=== PATIENT | male | born 1995 | race Two or more races ===

== ENCOUNTER 2024-04-18 21:13 | Emergency (ER) | payer OTHER, SELFPAY ==
[2024-04-18 21:14] VITALS: BMI 28.1
[2024-04-18 21:21] VITALS: BP 163/112; PULSE 85; RESP 19; TEMP 36.7; O2SAT 100
--- NOTE | 2024-04-18 21:25 | XR_ITS ---
Examination: Hand, left 3 views Technique: Hand AP, oblique, lateral 3 views Date and time of exam: April 18, 2024 2130 hrs. Indications: Injury at work to the hand today, hand pain. Findings: Fracture along the long axis of the distal phalanx third digit without displacement Comminuted fracture proximal to mid clavicular with minimal offset No dislocation No opaque foreign body Impression: Acute fracture distal phalanx third digit, intra-articular Comminuted fracture proximal to mid navicular
--- NOTE | 2024-04-18 21:26 | PD.EDRME ---
Rapid Medical Screening Exam E Arrival date/time: 04/18/24 21:13 28-year-old male presents emergency department complaining of left third digit pain and swelling after a heavy metal plate fell on his finger earlier today. Patient reports was managing pain at home with ibuprofen but pain worsened so decided to get evaluation. Chief Complaint: Extremity Injury, Upper Time Seen by Provider: 04/18/24 21:23 Vital signs: Vital Signs Temperature 98.1 F 04/18/24 21:21 Pulse Rate 85 04/18/24 21:21 Respiratory Rate 19 04/18/24 21:21 Blood Pressure 163/112 H 04/18/24 21:21 Pulse Oximetry (%) 100 04/18/24 21:21 Oxygen Delivery Method Room Air 04/18/24 21:21 Vital signs reviewed by provider: Yes
[2024-04-18] MEDS: HYDROcodone/APAP 5/325 TABLET 1 TAB PO (22:02)
[2024-04-18] MEDS: KETOROLAC INJ 60 MG/2 ML VIAL 30 MG IM (22:03)
--- NOTE | 2024-04-18 22:08 | EDNOTE_ITS ---
Upper Extremity Injury RME/HPI General Chief Complaint: Extremity Injury, Upper Stated Complaint: Smashed finger with a metal plate 100lbs Lft 3rd Time Seen by Provider: 04/18/24 21:23 Source: patient Arrival date/time: 04/18/24 21:13 28-year-old male presents emergency department complaining of left third digit pain and swelling after a heavy metal plate fell on his finger earlier today. Patient reports was managing pain at home with ibuprofen but pain worsened so decided to get evaluation. Mode of arrival: ambulatory Limitations: no limitations RME / HPI RME / HPI narrative: 04/18/24 21:13 28-year-old male presents emergency department complaining of left third digit pain and swelling after a heavy metal plate fell on his finger earlier today. Patient reports was managing pain at home with ibuprofen but pain worsened so decided to get evaluation. Related Data Previous Rx's ?Medication ?Instructions ?Recorded ibuprofen 800 mg tablet 800 mg PO Q8H #30 tabs 03/28 cephalexin 500 mg capsule 500 mg PO BID 5 days #10 cap s 04/18/24 ibuprofen 800 mg tablet 800 mg PO TID PRN fever or p ain 04/18/24 #30 tabs Allergies Allergy/AdvReac Type Severity Reaction Status Date / Time No Known Allergies Allergy Verified 03/28/19 19:53 Review of Systems Review of Systems Systems Reviewed: All systems reviewed, normal except as documented Constitutional Constitutional: Reports system reviewed and no additional complaints, except as documented, Denies body ache(s), Denies chills and Denies fever(s) Eyes Eyes: Reports system reviewed and no additional complaints, except as documented and Denies change in vision ENT Ears, Nose, Mouth, and Throat: Reports system reviewed and no additional complaints, except as documented, Denies disequilibrium, Denies dizziness, Denies sore throat and Denies vertigo Cardiovascular Cardiovascular: Reports system reviewed and no additional complaints, except as documented, Denies chest pain and Denies dyspnea Respiratory Respiratory: Reports system reviewed and no additional complaints, except as documented, Denies chest congestion, Denies cough and Denies dyspnea Gastrointestinal Gastrointestinal: Reports system reviewed and no additional complaints, except as documented, Denies abdominal pain, Denies nausea and Denies vomiting Musculoskeletal Musculoskeletal: Reports system reviewed and no additional complaints, except as documented, Denies abnormal gait and Reports arthralgias Integumentary/Breasts Skin/Breast: Reports system reviewed and no additional complaints, except as documented, Denies erythema, Denies rash, Reports skin swelling and Denies wounds Neurologic Neurologic: Reports system reviewed and no additional complaints, except as documented, Denies abnormal gait, Denies disequilibrium, Denies dizziness and Denies vertigo Past Medical History Past Medical History CARDIAC: Negative Congestive Heart Failure RESPIRATORY: Negative Chronic Obstructive Pulmonary Disease (COPD) GENITOURINARY: Negative Renal Disease ENDOCRINE: Negative Diabetes Mellitus Type 1 or Diabetes Mellitus Type 2 Social History SMOKING STATUS: Never smoker ED Exam General Limitations: Present no limitations General appearance: Present alert and in no apparent distress Head Head exam: Present atraumatic Eye Eye exam: Present normal appearance, PERRL and EOMI ENT ENT exam: Present normal exam, normal oropharynx and mucous membranes moist Neck Neck exam: Present normal inspection, full ROM and trachea midline Chest Chest inspection: Present normal inspection and symmetric chest wall rise Respiratory Respiratory exam: Present normal lung sounds bilaterally Cardiovascular Cardiovascular exam: Present regular rate, normal rhythm and normal heart sounds Abdominal Exam Abdominal exam: Present soft and normal bowel sounds Extremities Exam Extremities exam: Present normal inspection and full ROM Expanded Upper Extremity Exam Hand L/R front image: 2 1. other (+1 edema with bruising, no subungual hematoma.) Back Exam Back exam: Present normal inspection and full ROM Neurological Exam Neurological exam: Present alert, oriented X3 and CN II-XII intact Psychiatric Psychiatric exam: Present normal affect and normal mood Skin Skin exam: Present warm, dry, intact and normal color Course Quality Measures none Orders Category Date Time Status Splint / Immobilizer STAT Care 04/18/24 22:09 Completed XR hand comp LT min 3V Stat Exams 04/18/24 21:25 Completed HYDROcodone*/APAP 5/325 [[place] 5/325] Med 04/18/24 21:25 Discontinued 1 tab PO X1 ONE Ketorolac Inj [Toradol Inj] Med 04/18/24 21:25 Discontinued 30 mg IM X1 ONE Vital Signs Vital signs: Vital Signs Temperature 98.1 F 04/18/24 21:21 Pulse Rate 85 04/18/24 21:21 Respiratory Rate 19 04/18/24 21:21 Blood Pressure 163/112 H 04/18/24 21:21 Pulse Oximetry (%) 100 04/18/24 21:21 Oxygen Delivery Method Room Air 04/18/24 21:21 100% room air within normal limits Extremity Injury MDM Narrative MDM Narrative:: 28-year-old male presents emergency department complaining of left third digit pain and swelling after a heavy metal plate fell on his finger earlier today. Patient reports was managing pain at home with ibuprofen but pain worsened so decided to get evaluation. X-ray finding Fracture along the long axis of the distal phalanx third digit without displacement. Patient's third digit swelling and bruising with no subungual hematoma but edema to p palmar side of finger. Neurovascularly intact with full active range of motion. Patient placed in prefabricated finger splint. Patient tolerated well. Patient did report used a small needle and popped small blood-filled blister. Will treat with antibiotics due to patient reporting popping blister. Instructed patient have close follow-up primary care provider and request referral for service desk specialist. Instructed to monitor for signs increased pain, increased swelling, loss of sensation, or signs of infection that will require for him to immediately return to emergency department. Patient data External records reviewed:: [facility] previous records Clinical information provided by:: patient Social determinants that could affect healthcare access:: none Patient has the following chronic illnesses:: None How is presenting disease/condition affected by chronic disease/condition?: no chronic disease Evaluation data The following diagnostics were reviewed and interpreted by me:: radiology exam(s) Lab and/or radiology exams considered but not ordered:: Ordered Interpretation Summary: Interpreted by me Medications / Prescriptions Medications or Prescriptions considered but not ordered:: Ordered Medication administrations:: Medication Administration History Discontinued Medications Hydrocodone Bitart/Acetaminophen (Hydrocodone/Apap 5/325 Tablet) 1 tab PO X1 ONE Stop: 04/18/24 21:26 Last Admin: 04/18/24 22:02 Dose: 1 tab Documented By: DAVID Ketorolac Tromethamine (Ketorolac Inj 60 Mg/2 Ml Vial) 30 mg IM X1 ONE Stop: 04/18/24 21:26 Last Admin: 04/18/24 22:03 Dose: 30 mg Documented By: DAVID Given Consultations Consultation(s) initiated? (list below): No Diagnosis Upper Extremity Injury Differential Diagnosis: finger sprain, dislocation of finger and fracture of hand Most likely diagnosis given after review of the tests above:: Fracture of distal phalanx of finger of left hand Admission Indicated Admission indicated?: not indicated Admission Request Was there a request for admission?: No Disposition Plan Disposition Plan: Discharge Discharge Attestation Discharge Attestation: The patient and all family members were given an opportunity to ask questions and understood the discharge instructions. Discharge instructions specifically effects, indications for sooner follow up or return to the emergency department, and the expected course of current diagnosis. Patient condition: Stable Discharge Plan Plan Patient Disposition: HOME (Self Care) Disposition Comment: Stable Prescriptions/Referrals Prescriptions/Med Rec: New ibuprofen 800 mg tablet 800 mg PO TID PRN (Reason: fever or pain) Qty: 30 0RF cephalexin 500 mg capsule 500 mg PO BID 5 Days Qty: 10 0RF No Action ibuprofen 800 mg tablet 800 mg PO Q8H Qty: 30 0RF Referrals: No Primary/Family,Physician [Primary Care Provider] - In 1 week Problem List Clinical Impression: Fracture of distal phalanx of finger of left hand Patient/Caregiver Discharge Instructions Education Materials: How Bones Heal, ED Fracture, Finger, Closed Additional Instructions: Take ibuprofen as needed for pain. Follow-up with primary care provider in 2 to 3 days and request referral to service desk specialist. Monitor for finger for any signs of infection, increased pain, loss of sensation, or worsening symptoms that would require you to return immediately to emergency department. Print Language: Turkmen Stand Alone Forms: Nataliya Award Info., Work/School Release, Patient Portal Info Letter MERRY/DELTA Supervising Physician MERRY/DELTA Supervising Physician: Dr. Carrington
== END 2024-04-18 22:32 | disposition home or self-care (01) ==
PROVIDERS: Emergency Provider Emergency Medicine
DX: S62.633A Displaced fracture of distal phalanx of left middle finger, initial encounter for closed fracture (principal); W20.8XXA Other cause of strike by thrown, projected or falling object, initial encounter
CPT/HCPCS: 73130; 96372; 99283; J1885; A9270

== ENCOUNTER 2025-01-15 15:08 | Emergency (ER) | payer MEDICAID, SELFPAY ==
[2025-01-15 15:22] VITALS: BP 124/78; PULSE 89; RESP 16; TEMP 36.8; O2SAT 99
--- NOTE | 2025-01-15 15:46 | PD.EDWOUND ---
ED Wound/Laceration-RME/HPI General Chief Complaint: Wound/Laceration Stated Complaint: DOG BITE L) LOWER LIP LAST WED. BLEEDING TODAY Time Seen by Provider: 01/15/25 15:17 Arrival date/time: 01/15/25 15:08 This is a case of a 29-year-old male with no medical history came in in the emergency room due to bleeding laceration and skin avulsion on the lower lip secondary to dog bite patient seen by primary care physician last Wednesday for dog bite wound was clean was given tetanus shot and started on Augmentin for dog bite patient was fine until today he bumped his lower lip and started to have bleeding and noted to have hematoma thus decided to sought consult here in the emergency room Limitations: no limitations Related Data Previous Rx's ?Medication ?Instructions ?Recorded ibuprofen 800 mg tablet 800 mg PO Q8H #30 tabs 03/28/19 ibuprofen 800 mg tablet 800 mg PO TID PRN fever or pain 04/18/24 #30 tabs Allergies Allergy/AdvReac Type Severity Reaction Status Date / Time No Known Allergies Allergy Verified 01/15/25 15:12 Review of Systems Review of Systems Systems Reviewed: All systems reviewed, normal except as documented Constitutional Constitutional: Reports system reviewed and no additional complaints, except as documented and Reports as per HPI Cardiovascular Cardiovascular: Reports system reviewed and no additional complaints, except as documented and Reports as per HPI Respiratory Respiratory: Reports system reviewed and no additional complaints, except as documented and Reports as per HPI Gastrointestinal Gastrointestinal: Reports system reviewed and no additional complaints, except as documented and Reports as per HPI Neurologic Neurologic: Reports system reviewed and no additional complaints, except as documented and Reports as per HPI Past Medical History Past Medical History CARDIAC: Negative Congestive Heart Failure RESPIRATORY: Negative Chronic Obstructive Pulmonary Disease (COPD) GENITOURINARY: Negative Renal Disease ENDOCRINE: Negative Diabetes Mellitus Type 1 or Diabetes Mellitus Type 2 Social History SMOKING STATUS: Current some day smoker ED Exam General Limitations: Present no limitations General appearance: Present alert, in no apparent distress and other (Patient is awake alert oriented not in distress nontoxic looking well-hydrated well nourished) Head Head exam: Present atraumatic, normocephalic and normal inspection Eye Eye exam: Present normal appearance, PERRL and EOMI ENT ENT exam: Present normal exam, normal oropharynx, mucous membranes moist and other (Patient noted to have a skin avulsion approximately 2 cm minimal bleeding with hematoma no foreign body no bone injury no abscess no cellulitis dental exam HEENT exam were normal) Neck Neck exam: Present normal inspection, full ROM and trachea midline Chest Chest inspection: Present normal inspection and symmetric chest wall rise; Absent tenderness Respiratory Respiratory exam: Present normal lung sounds bilaterally; Absent respiratory distress, wheezes, stridor, accessory muscle use or prolonged expiratory phase Cardiovascular Cardiovascular exam: Present regular rate, normal rhythm and normal heart sounds; Absent bradycardia, tachycardia, irregular rhythm, systolic murmur or diastolic murmur Abdominal Exam Abdominal exam: Present soft and normal bowel sounds; Absent distention, tenderness, guarding, rebound, rigidity, diminished bowel sounds, hyperactive bowel sounds, hypoactive bowel sounds or organomegaly Extremities Exam Extremities exam: Present normal inspection and full ROM Back Exam Back exam: Present normal inspection and full ROM Neurological Exam Neurological exam: Present alert, oriented X3, CN II-XII intact, normal gait and reflexes normal; Absent motor sensory deficit Psychiatric Psychiatric exam: Present normal affect and normal mood Skin Skin exam: Present warm, dry, intact, normal color and other (Lip laceration) Course Quality Measures none Orders Category Date Time Status cefTRIAXone [Rocephin] 1,000 mg Med 01/15/25 15:42 Discontinued Lidocaine 1% Pf 5 ml [Xylocaine 1% Pf 5 ml] 2.1 ml IM X1 Vital Signs Vital signs: Vital Signs Temperature 98.2 F 01/15/25 15:22 Pulse Rate 89 01/15/25 15:22 Respiratory Rate 16 01/15/25 15:22 Blood Pressure 124/78 01/15/25 15:22 Pulse Oximetry (%) 99 01/15/25 15:22 Oxygen Delivery Method Room Air 01/15/25 15:22 Oxygen saturation is 99% in room air normal Wound / Laceration MDM Narrative MDM Narrative:: This is a case of a 29-year-old male with no medical history came in in the emergency room due to bleeding laceration and skin avulsion on the lower lip secondary to dog bite patient seen by primary care physician last Wednesday for dog bite wound was clean was given tetanus shot and started on Augmentin for dog bite patient was fine until today he bumped his lower lip and started to have bleeding and noted to have hematoma thus decided to sought consult here in the emergency room physical examination patient is awake alert oriented not in distress nontoxic looking well-hydrated well nourished physical examination noted a skin avulsion approximately 2 cm with minimal bleeding with large hematoma no abscess Physical examination showed HEENT exam were normal dental tooth and gums were intact hematoma was removed bleeding controlled apply Surgicel and covered with nonadherent gauze patient was advised to follow-up with PCP tomorrow or in the ER for wound dressing and for reevaluation and wound check patient was given ceftriaxone IM here to prevent infection since the wound was bleeding patient will continue Augmentin and finish the course of antibiotic patient was advised to return to the emergency room for any worsening symptoms symptoms or any signs and symptoms of infection Patient was discharged with comfortable condition walking with stable gait. Patient verbalized no further complains explained diagnosis and answered patient question. Patient is comfortable with the proposed management plan including the need to follow up with his/her primary care physician and any specialist if applicable Discussed patient for any urgent condition or worsening sx, He/She needed to go to emergency room immediately or call 911. Patient acknowledge the responsibility to follow up as instructed and to monitor her/his symptoms. For any persistence of the symptoms for more than 3-5 days return precaution advised. Discussed the result of the test and was given printed discharge instruction Patient data External records reviewed:: [facility] previous records Clinical information provided by:: patient Social determinants that could affect healthcare access:: none Patient has the following chronic illnesses:: None How is presenting disease/condition affected by chronic disease/condition?: no chronic disease Evaluation data The following diagnostics were reviewed and interpreted by me:: other (specify) (None) Lab and/or radiology exams considered but not ordered:: None none Interpretation Summary: None Medications / Prescriptions Medications or Prescriptions considered but not ordered:: Given Medication administrations:: Medication Administration History Discontinued Medications Ceftriaxone Sodium 1,000 mg/ (Lidocaine HCl 2.1 ml) 0 mg IM X1 ONE Stop: 01/15/25 15:43 Given Consultations Consultation(s) initiated? (list below): No Diagnosis Wound Differential Diagnosis: laceration Most likely diagnosis given after review of the tests above:: Lip laceration secondary to dog bite Admission Indicated Admission indicated?: not indicated Explain why admission is indicated or not indicated:: Not indicated Admission Request Was there a request for admission?: No Admission Attestation Admission request attestation: Not indicated Disposition Plan Disposition Plan: Discharge Discharge Attestation Discharge Attestation: The patient and all family members were given an opportunity to ask questions and understood the discharge instructions. Discharge instructions specifically effects, indications for sooner follow up or return to the emergency department, and the expected course of current diagnosis. Patient condition: Stable Discharge Plan Plan Patient Disposition: HOME (Self Care) Patient condition on transfer: Stable Prescriptions/Referrals Prescriptions/Med Rec: No Action ibuprofen 800 mg tablet 800 mg PO Q8H Qty: 30 0RF ibuprofen 800 mg tablet 800 mg PO TID PRN (Reason: fever or pain) Qty: 30 0RF Problem List Clinical Impression: Dog bite, Laceration of lip Patient/Caregiver Discharge Instructions Education Materials: ED Dog Bite, ED Laceration, Old: Not Sutured Additional Instructions: Follow-up with your primary care physician in 2 days for reevaluation return to the emergency room tomorrow or on your primary care physician for wound check keep the dressing clean dry for 24 hours continue the Augmentin that was prescribed by the previous provider keep the area clean and dry finish the course of antibiotic Print Language: Taiwanese Stand Alone Forms: Nataliya Award Info., Work/School Release, Patient Portal Info Letter PA/IT DISASTER RECOVERY MANAGER Supervising Physician PA/IT DISASTER RECOVERY MANAGER Supervising Physician: Dr. Barnett
== END 2025-01-15 16:17 | disposition home or self-care (01) ==
LOC: SERX 16:24
PROVIDERS: Emergency Provider Emergency Medicine; PCP Family Medicine
DX: S01.511A Laceration without foreign body of lip, initial encounter (principal); W54.0XXA Bitten by dog, initial encounter
CPT/HCPCS: 96372; 99282; J0696; J3490